=== PATIENT | female | born 1995 | race Two or more races ===

== ENCOUNTER → 2023-07-20 | Outpatient (CLI) | payer OTHER ==
[2023-07-21 08:07] LABS: Mumps IgG Antibody 18.7 AU/mL (Immune >10.9); Rubeola IgG Antibody 18.2 AU/mL (Immune >16.4)
== END | disposition home or self-care (01) ==
LOC: LAB 11:17
PROVIDERS: ATTEND Nurse Practitioner
DX: Z01.84 Encounter for antibody response examination (principal)
CPT/HCPCS: 36415; 86706; 86735; 86762; 86765; 86787